=== PATIENT | female | born 1970 ===

== ENCOUNTER 2017-12-05 16:56 | Emergency (ER) | payer OTHER ==
[2017-12-05 17:13] VITALS: BP 135/86; PULSE 63; RESP 18; TEMP 98.3; O2SAT 98
--- NOTE | 2017-12-05 18:31 | ED PDOC ---
HPI: Eye Injury/Pain Time Seen by Provider: 12/05/17 17:25 Chief Complaint (Nursing): Eye Problem Additional Complaint(s): 47 y/o F with NO pertinent PMHx c/o L eye redness that was noticed yesterday and aggravated today. Pt decribes noticing bleeding on the inside corner of her L eye. No similar episodes in the past. No recent trauma. Pt works arranging boxes at a store. Pt denies any eye pain, lacrimation, pruritic eye, sneezing, coughing, nausea, vomiting, seasonal allergies, ill contacts or recent travel. PMD: Dr uBrkett at [facility]. NKA Meds: None PMHx: denied PSHx: denied SHx: No tobacco, alcohol or rec drugs. No second-hand smoking. Past Medical History Vital Signs: Last Vital Signs Temp 98.3 F 12/05/17 17:12 Pulse 63 12/05/17 17:12 Resp 18 12/05/17 17:12 BP 135/86 12/05/17 17:12 Pulse Ox 98 12/05/17 17:12 - Medical History PMH: No Chronic Diseases - Surgical History Surgical History: No Surg Hx - Family History Family History: States: No Known Family Hx - Living Arrangements Living Arrangements: With Family - Social History Current smoker - smoking cessation education provided: No Alcohol: None Drugs: Denies - Allergies Allergies/Adverse Reactions: Allergies Allergy/AdvReac Type Severity Reaction Status Date / Time No Known Allergies Allergy Verified 12/05/17 17:11 Review of Systems Constitutional: Negative for: Fever, Chills Eyes: Positive for: Other (Hemorrhage on medial area left sclerae. ). Negative for: Pain, Vision Change, Eyelid Inflammation, Redness ENT: Negative for: Ear Pain, Nose Congestion, Throat Pain, Throat Swelling Cardiovascular: Negative for: Chest Pain, Palpitations Respiratory: Negative for: Cough, Shortness of Breath, Wheezing Gastrointestinal: Negative for: Nausea, Vomiting, Abdominal Pain, Diarrhea Skin: Negative for: Rash, Lesions Neurological: Negative for: Headache, Dizziness Psych: Negative for: Anxiety, Depression Physical Exam - Physical Exam Appears: Positive for: Well, No Acute Distress Head Exam: Positive for: ATRAUMATIC, NORMAL INSPECTION Skin: Positive for: Normal Color Eye Exam: Positive for: EOMI, PERRL, Other (Presence of subconjunctival hemnorrage on medial area of L eye. ). Negative for: Nystagmus, Periorbital swelling, Periorbital tenderness, Conjunctival injection ENT: Positive for: Normal ENT Inspection Neck: Positive for: Normal, Painless ROM, Supple. Negative for: Decreased ROM Cardiovascular/Chest: Positive for: Regular Rate, Rhythm Respiratory: Positive for: Normal Breath Sounds. Negative for: Rales, Rhonchi, Stridor, Wheezing Gastrointestinal/Abdominal: Positive for: Normal Exam, Bowel Sounds. Negative for: Soft, Tenderness, Organomegaly, Distended, Rebound Neurologic/Psych: Positive for: Alert, Oriented - ECG O2 Sat by Pulse Oximetry: 98 Medical Decision Making Medical Decision Making: At 18:10, pt was evaluated and examined. --Will do a visual acuity test. --Pt counseled on the benign nature of subconjunctival hemorrhage and educated that hemorrhage will resolve spontaneously after several days. At 18:59, Visual acuity test with Snellen test performed by nv. Left eye 20/40 (eye with hemorrhage). Right eye 20/50. --Discharge home. Disposition - Clinical Impression Clinical Impression: Subconjunctival hemorrhage - Disposition Referrals: Pardeep Mtz MD [Staff Provider] - 12/06/17 Condition: STABLE Additional Instructions: Return if not better in 3 days. Instructions: Subconjunctival Hemorrhage Forms: [facility] (Estonian) Print Language: HUNGARIAN
== END 2017-12-05 19:37 | disposition home or self-care (01) ==
LOC: H.ER 16:56
DX: H11.31 Conjunctival hemorrhage, right eye (principal)